=== PATIENT | female | born 1955 | race Caucasian/White ===

== ENCOUNTER → 2024-04-08 13:44 | Outpatient (REF) | payer MEDICARE, OTHER, SELFPAY | LOC: WDC 13:44 | PROVIDERS: ATTENDING PHYSICIAN Family Medicine | DX: Z78.0 Asymptomatic menopausal state (principal); Z12.31 Encounter for screening mammogram for malignant neoplasm of breast | CPT/HCPCS: 77063; 77067; 77080 ==

== ENCOUNTER → 2024-10-29 12:51 | Outpatient (REF) | payer BC, SELFPAY | LOC: RAD 12:51 | PROVIDERS: ATTENDING PHYSICIAN Family Medicine | DX: R25.3 Fasciculation (principal); M79.10 Myalgia, unspecified site | CPT/HCPCS: 93922; 93925 ==

== ENCOUNTER → 2024-12-30 12:45 | Outpatient (REF) | payer BC, SELFPAY | LOC: RAD 12:45 | PROVIDERS: ATTENDING PHYSICIAN Internal Medicine; FAMILY PHYSICIAN Family Medicine | DX: M19.90 Unspecified osteoarthritis, unspecified site (principal) | CPT/HCPCS: 73560; 73565; 73630 ==

== ENCOUNTER → 2025-01-27 12:39 | Outpatient (REF) | payer BC, SELFPAY | LOC: RAD 12:39 | PROVIDERS: ATTENDING PHYSICIAN Nurse Practitioner Adult Health | DX: I48.0 Paroxysmal atrial fibrillation (principal); I83.893 Varicose veins of bilateral lower extremities with other complications; R60.0 Localized edema | CPT/HCPCS: 93970 ==

== ENCOUNTER → 2025-04-09 12:25 | Outpatient (REF) | payer BC, SELFPAY | LOC: WDC 12:25 | PROVIDERS: ATTENDING PHYSICIAN Family Medicine | DX: Z12.31 Encounter for screening mammogram for malignant neoplasm of breast (principal) | CPT/HCPCS: 77063; 77067 ==

== ENCOUNTER → 2025-04-16 06:49 | Outpatient (REF) | payer BC, SELFPAY | LOC: RCS 06:49 | PROVIDERS: ATTENDING PHYSICIAN Physician Assistant; FAMILY PHYSICIAN Family Medicine | DX: I48.91 Unspecified atrial fibrillation (principal); R60.0 Localized edema; R06.09 Other forms of dyspnea | CPT/HCPCS: 93306 ==

== ENCOUNTER → 2025-06-03 13:02 | Outpatient (REF) | payer BC, SELFPAY | LOC: RAD 13:02 | PROVIDERS: ATTENDING PHYSICIAN Family Medicine | DX: R06.09 Other forms of dyspnea (principal); R53.83 Other fatigue; J45.991 Cough variant asthma; J84.10 Pulmonary fibrosis, unspecified | CPT/HCPCS: 71046 ==

== ENCOUNTER → 2025-06-29 14:35 | Outpatient (REF) | payer BC, SELFPAY | LOC: MRI 3T 14:35 | PROVIDERS: ATTENDING PHYSICIAN Internal Medicine; FAMILY PHYSICIAN Family Medicine | DX: M79.672 Pain in left foot (principal) | CPT/HCPCS: 73720; A9575 ==

== ENCOUNTER → 2025-07-24 11:29 | Outpatient (REF) | payer BC, SELFPAY | LOC: MRI 3T 11:29 | PROVIDERS: ATTENDING PHYSICIAN Internal Medicine; FAMILY PHYSICIAN Family Medicine | DX: M79.671 Pain in right foot (principal) | CPT/HCPCS: 73720; A9575 ==